=== PATIENT | female | born 1940 | race Caucasian/White ===

== ENCOUNTER 2017-07-28 07:32 | Emergency (ER) | payer OTHER ==
[~2017-07-28] VITALS: Ht 154.9 cm; Wt 45.4 kg
[~2017-07-28 07:32] MED LIST: NO; SINGULAIR10 MG PO
== END 2017-07-28 10:39 | disposition home or self-care (01) ==
LOC: ER 07:32
DX: B34.9 Viral infection, unspecified (principal); R05 Cough

== ENCOUNTER 2019-02-16 07:23 | Emergency (ER) | payer OTHER ==
[~2019-02-16] VITALS: Ht 154.9 cm; Wt 47.6 kg
== END 2019-02-16 09:14 | disposition home or self-care (01) ==
LOC: ER 07:23
DX: S43.491A Other sprain of right shoulder joint, initial encounter (principal); X50.0XXA Overexertion from strenuous movement or load, initial encounter; Y93.89 Activity, other specified; Y92.018 Other place in single-family (private) house as the place of occurrence of the external cause; Y99.8 Other external cause status

== ENCOUNTER 2020-01-31 06:34 | Emergency (ER) | payer OTHER ==
[~2020-01-31] VITALS: Ht 154.9 cm; Wt 47.6 kg
[2020-01-31] MEDS ORDERED: PREDNISONE 20 MG. (06:58)
== END 2020-01-31 08:24 | disposition home or self-care (01) ==
LOC: ER 06:34
DX: J45.998 Other asthma (principal); Z76.0 Encounter for issue of repeat prescription

== ENCOUNTER 2020-02-28 07:14 | Emergency (ER) | payer OTHER ==
[~2020-02-28] VITALS: Ht 157.5 cm; Wt 47.6 kg
[~2020-02-28 07:14] MED LIST changes: +PREDNISONE 20 MG.
[2020-02-28] MEDS ORDERED: NORFLEX100MG PO (09:21)
[2020-02-28] MEDS ORDERED: ADVIL LIQUI-GE200 MG PO (09:21)
== END 2020-02-28 09:27 | disposition home or self-care (01) ==
LOC: ER 07:14
DX: M54.5 Low back pain (principal)

== ENCOUNTER 2020-08-19 10:35 | Emergency (ER) | payer OTHER ==
[~2020-08-19] VITALS: Ht 157.5 cm; Wt 49.9 kg
[~2020-08-19 10:35] MED LIST changes: +ADVIL LIQUI-GE200 MG PO; +NORFLEX100MG PO
[2020-08-19] MEDS ORDERED: MUPIROCIN1 G1 TOP (11:02)
[2020-08-19] MEDS ORDERED: DUI500 PO (11:02)
== END 2020-08-19 11:28 | disposition home or self-care (01) ==
LOC: ER 10:35
DX: L03.116 Cellulitis of left lower limb (principal); S80.812S Abrasion, left lower leg, sequela; W55.03XS Scratched by cat, sequela

== ENCOUNTER 2021-09-09 08:15 | Emergency (ER) | payer OTHER ==
[~2021-09-09] VITALS: Ht 152.4 cm; Wt 46.3 kg
[~2021-09-09 08:15] MED LIST changes: +DUI500 PO; +MUPIROCIN1 G1 TOP
== END 2021-09-09 10:38 | disposition home or self-care (01) ==
LOC: ER 08:15
DX: M54.50 Low back pain, unspecified (principal)

== ENCOUNTER 2021-09-11 11:04 | Emergency (ER) | payer OTHER ==
[~2021-09-11] VITALS: Ht 157.5 cm; Wt 47.6 kg
[2021-09-11] MEDS ORDERED: SKELAXIN800 MG PO (11:24)
[2021-09-11] MEDS ORDERED: NAPR500T14 PO (11:25)
== END 2021-09-11 14:53 | disposition home or self-care (01) ==
LOC: ER 11:04
DX: M54.89 Other dorsalgia (principal)

== ENCOUNTER 2021-12-19 11:17 | Emergency (ER) | payer OTHER ==
[~2021-12-19] VITALS: Ht 154.9 cm; Wt 39.0 kg
[~2021-12-19 11:17] MED LIST changes: +NAPR500T14 PO; +SKELAXIN800 MG PO
== END 2021-12-19 13:58 | disposition left against medical advice (07) ==
LOC: ER 11:17
DX: J45.901 Unspecified asthma with (acute) exacerbation (principal); Z87.891 Personal history of nicotine dependence

== ENCOUNTER 2023-08-06 09:33 | Emergency (ER) | payer OTHER ==
[~2023-08-06] VITALS: Ht 154.9 cm; Wt 44.0 kg
== END 2023-08-06 11:43 | disposition home or self-care (01) ==
LOC: ER 09:33
DX: U07.1 COVID-19 (principal)

== ENCOUNTER 2023-11-02 06:38 | Emergency (ER) | payer OTHER ==
[~2023-11-02] VITALS: Ht 154.9 cm; Wt 38.6 kg
[2023-11-02] MEDS ORDERED: PENTOXIFYLLINE400 MG PO (07:37)
== END 2023-11-02 08:19 | disposition home or self-care (01) ==
LOC: ER 06:38
DX: M62.830 Muscle spasm of back (principal)

== ENCOUNTER 2024-01-28 15:54 | Emergency (ER) | payer OTHER ==
[~2024-01-28] VITALS: Ht 157.5 cm; Wt 40.8 kg
[~2024-01-28 15:54] MED LIST changes: +PENTOXIFYLLINE400 MG PO; +PEPCID AC20 MG PO
[2024-01-28] MEDS ORDERED: LACTULOSE 10 G/15 ML ML PO STA (16:42)
[2024-01-28] MEDS ORDERED: MINERAL OIL 30 ML BLIST.PACK PO STA (16:42)
[2024-01-28] MEDS ORDERED: MAG HYDROX/ALUMINUM HYD/SIMETH 30 ML BLIST.PACK PO STA (16:43)
== END 2024-01-28 17:22 | disposition home or self-care (01) ==
LOC: ER 15:55
DX: K59.00 Constipation, unspecified (principal)